=== PATIENT | female | born 1940 | race Caucasian/White ===

== ENCOUNTER 2016-10-31 07:57 | Emergency (ER) | payer OTHER, MEDICARE ==
[~2016-10-31] VITALS: Ht 162.6 cm; Wt 87.5 kg
[~2016-10-31 07:57] MED LIST: ASPIRIN81 M1 PO; BENTYL20 MG PO; BUDESONIDE0.25 MG/2 IH; Bentyl PO; CALCIUM 500 MG1 EACH PO; CIPRO250 MG PO; CLONAZEPAM1 MG PO; FLAGYL250 MG PO; FLUOXETINE HCL20 MG PO; GLUCOPHAGE500 MG PO; KlonoPIN PO; LIPITOR5 MG PO; LORAZEPAM1 MG PO; MAXZIDE 37.5 M1 EACH PO; MULTIVITAMIN W1 EACH PO; Maxzide 25 PO; Mylicon,Mylanta Gas, PO; NORVASC2.5 MG PO; OCUVITE TABLET1 EACH PO; PERCOCET 5/31 TABLET PO; PROVENTIL,2.5 MG/3 M IH; ZOLOFT50 M1 PO; ZOLOFT50 MG PO; [UNRECOGNIZED DRUG - OTHER] PO
[2016-10-31 10:23] LABS: MCHC 33.6 G/DL (30.0-36.0); MCV 92.2 FL (83-99); MEAN PLAT.VOLUME 10.2 uM^3 (9.5-12.4); PLATELET COUNT 188 K/uL (156-360); RBC DIS.WIDTH-CV 13.4 % (11.8-14.6); RBC DIS.WIDTH-SD 45.6 % (39-53); WHITE BLOOD COUNT 9.8 K/uL (4.1-10.2)
[2016-10-31 10:35] LABS: CHLORIDE 103 mEq/L (99-109); POTASSIUM 3.9 mEq/L (3.7-5.4); SODIUM 141 mEq/L (136-147)
[2016-10-31 10:37] LABS: GLUCOSE 94 mg/dL (70-99)
[2016-10-31 10:38] LABS: ANION GAP 11 MEQ/L (2-14)
[2016-10-31 10:41] LABS: GFR ESTIMATE (CALCULATED) > 59 mL/min/
[2016-10-31 10:42] LABS: UREA NITROGEN (BUN) 16 mg/dL (9-23)
[2016-10-31 12:09] LABS: ADD MIUA? NO; BILIRUBIN NEGATIVE; BLOOD NEGATIVE; COLOR STRAW ((YELLOW)); GLUCOSE (STRIP) NEGATIVE; KETONES NEGATIVE; LEUKOCYTES NEGATIVE; NITRITE NEGATIVE; PROTEIN (STRIP) NEGATIVE; SPECIFIC GRAVITY 1.006 (1.000-1.030); UCUL ADDED? NO; UROBILINOGEN 0.2 MG/DL (0.2-1.0)
[2016-10-31] MEDS ORDERED: ULTRAM50 MG PO (15:14)
[2016-10-31 15:31] VITALS: BP 161/88
== END 2016-10-31 15:32 | disposition home or self-care (01) ==
LOC: EME 07:57
PROVIDERS: Emergency Medicine
DX: M54.31 Sciatica, right side (principal); R10.11 Right upper quadrant pain; J44.9 Chronic obstructive pulmonary disease, unspecified; G47.30 Sleep apnea, unspecified; E11.9 Type 2 diabetes mellitus without complications; I10 Essential (primary) hypertension; Z87.891 Personal history of nicotine dependence
CPT/HCPCS: 74176; 80048; 81003; 85027; 99281; 99285; J1885; J7030